=== PATIENT | female | born 1995 | race Caucasian/White ===

== ENCOUNTER → 2018-02-27 | Outpatient (CLI) | payer SELFPAY ==
--- NOTE | 2018-02-27 15:45 | RADIOLOGY REPORT (SQ) ---
EXAM DESCRIPTION: U/S [id number] TRNABD 1GES W/ODOP COMPLETED DATE/TIME: 02/27/2018 3:04 pm REASON FOR STUDY: ENCOUNTER FOR SCREENING OF NORMAL FIRST , FIRST TRIMESTER Z34.01 ENCNTR FOR SUPRVSN OF NORMAL FIRST PREG, FIRST TRIMES COMPARISON: None. TECHNIQUE: Transabdominal static and realtime grayscale images acquired of the pelvis. Additional se lected spectral and color Doppler images recorded. All images stored on PACs. [facility] Not available. CLINICAL DATES: LMP 12/01/2017. 12 weeks 4 days. LIMITATIONS: None. FINDINGS: FETUS: Single Living intrauterine . ULTRASOUND EGA: 12 weeks 2 days. ULTRASOUND ARIK: 09/09/2018. EFW: Not applicable less than 20 weeks. CRL: 5.7 cm. FHR: 150 beats per minute. SURVEY: Too early to assess. AMNIOTIC FLUID: Adequate amount. PLACENTA: Posterior. SUBCHORIONIC BLEED: No SIZE OF BLEED: Not applicable. UTERUS: No masses or anomalies. 12.9 x 8.4 x 7.6 cm. CERVICAL LENGTH: 2.8 cm. Closed. RIGHT ADNEXA: Normal ovary with normal vascular flow. 2.5 x 2.2 x 1.9 cm. No adnexal free fluid. No adnexal masses. LEFT ADNEXA: Ovary not seen. No adnexal free fluid. No adnexal masses. FREE FLUID: None. OTHER: No other significant finding. IMPRESSION: LIVING INTRAUTERINE . EGA 12 weeks 2 days. Trimester of : First - 0 to 13 weeks. TECHNICAL DOCUMENTATION: JOB ID: [id number] [employer]- All Rights Reserved rev Reading location - IP/workstation name: [email or web address]
== END ==
LOC: RAD 14:40
PROVIDERS: ATTEND Nurse Practitioner
DX: Z34.01 Encounter for supervision of normal first pregnancy, first trimester (principal)
CPT/HCPCS: 76801

== ENCOUNTER 2018-07-07 10:48 | Outpatient (CLI) | payer MEDICAID ==
[2018-07-07 11:24] LABS: APPEARANCE,URINE SLIGHTLY-CLOUDY; BILIRUBIN,URINE NEGATIVE (NEGATIVE); COLOR,URINE YELLOW; GLUCOSE, URINE NEGATIVE (NEGATIVE); KETONES,URINE NEGATIVE (NEGATIVE); LEUKOCYTE ESTERASE,URINE NEGATIVE (NEGATIVE); NITRITE,URINE NEGATIVE (NEGATIVE); PROTEIN,URINE 30 mg/dL (NEGATIVE); URINE SPECIFIC GRAVITY 1.016; UROBILINOGEN,URINE NEGATIVE mg/dL (<2.0)
[2018-07-07 11:27] LABS: URINE AMPHETAMINES SCREEN NEGATIVE; URINE BARBITURATES SCREEN NEGATIVE; URINE BENZODIAZEPINES SCREEN NEGATIVE; URINE COCAINE SCREEN NEGATIVE; URINE MARIJUANA (THC) SCREEN NEGATIVE; URINE METHADONE SCREEN NEGATIVE; URINE PHENCYCLIDINE SCREEN NEGATIVE
--- NOTE | 2018-07-07 15:03 | RADIOLOGY REPORT (SQ) ---
EXAM DESCRIPTION: U/S OB LIMITED COMPLETED DATE/TIME: 07/07/2018 2:18 pm REASON FOR STUDY: cervical length, placenta COMPARISON: OB ultrasound 02/27/2018 TECHNIQUE: Limited transvaginal and transabdominal grayscale ultrasound for evaluation of specific r equested obstetrical parameters. LIMITATIONS: None. FINDINGS: CERVICAL LENGTH: 5.7 cm Closed. MAGALY: 11.9 cm. FHR: 130 beats per minute. PRESENTATION: Cephalic. PLACENTA: Posterior grade 1. No gross abruption or previa ANATOMY: Not assessed OTHER: No other significant findings. IMPRESSION: LIMITED OBSTETRICAL ULTRASOUND WITH MEASURED PARAMETERS DELINEATED ABOVE. Trimester of : Third trimester - 28 weeks to delivery. TECHNICAL DOCUMENTATION: JOB ID: [id number] [employer]- All Rights Reserved Reading location - IP/workstation name: [email or web address]
== END 2018-07-07 14:30 | disposition home or self-care (01) ==
LOC: LC 10:48
PROVIDERS: ATTEND Student in an Organized Health Care Education/Training Program
PROC: 4A1HXCZ Monitoring of Products of Conception, Cardiac Rate, External Approach (ICD-10-PCS; principal; 2018-07-07)
DX: O46.93 Antepartum hemorrhage, unspecified, third trimester (principal); Z3A.31 31 weeks gestation of pregnancy
CPT/HCPCS: 76815; 80307; 81001

== ENCOUNTER 2018-08-29 16:04 | Outpatient (CLI) | payer MEDICAID ==
[2018-08-29 16:44] LABS: APPEARANCE,URINE CLOUDY; BILIRUBIN,URINE NEGATIVE (NEGATIVE); COLOR,URINE YELLOW; GLUCOSE, URINE NEGATIVE (NEGATIVE); KETONES,URINE TRACE mg/dL (NEGATIVE); LEUKOCYTE ESTERASE,URINE LARGE (NEGATIVE); NITRITE,URINE NEGATIVE (NEGATIVE); PROTEIN,URINE 100 mg/dL (NEGATIVE); URINE SPECIFIC GRAVITY 1.023
[2018-08-29 16:58] LABS: URINE AMPHETAMINES SCREEN NEGATIVE; URINE BARBITURATES SCREEN NEGATIVE; URINE BENZODIAZEPINES SCREEN NEGATIVE; URINE COCAINE SCREEN NEGATIVE; URINE MARIJUANA (THC) SCREEN NEGATIVE; URINE METHADONE SCREEN NEGATIVE; URINE PHENCYCLIDINE SCREEN NEGATIVE
[2018-08-29 17:00] LABS: UR PRO/CREAT RATIO RESULT 0.4 mg/mg (0.0-0.2); URINE CREATININE 189.8 mg/dL (16-327); URINE PROTEIN 84.4 mg/dL (<12)
[2018-08-29 18:56] LABS: ABSOLUTE EOSINOPHILS # (AUTO) 0.1 10^3/uL (0.0-0.6); ABSOLUTE LYMPHOCYTES (AUTO) 2.3 10^3/uL (0.5-4.7); ABSOLUTE MONOCYTES (AUTO) 0.9 10^3/uL (0.1-1.4); ABSOLUTE NEUT (AUTO) 9.2 10^3/uL (1.7-8.2); BASOPHILS % (AUTO) 0.2 % (0-2); EOSINOPHILS % (AUTO) 0.4 % (0-6); HEMATOCRIT 31.2 % (36.0-47.0); HEMOGLOBIN 10.3 g/dL (12.0-15.5); LYMPHOCYTES % (AUTO) 18.5 % (13-45); MEAN CORPUSCULAR HEMOGLOBIN 26.2 pg (27.0-33.4); MEAN CORPUSCULAR VOLUME 79 fl (80-97); MONOCYTES % (AUTO) 6.8 % (3-13); PLATELET COUNT 275 10^3/uL (150-450); RED BLOOD COUNT 3.94 10^6/uL (3.72-5.28); RED CELL DISTRIBUTION WIDTH 16.1 % (11.5-14.0); SEGMENTED NEUTROPHILS % (AUTO) 74.1 % (42-78); TOTAL CELLS COUNTED % (AUTO) 100 %; WHITE BLOOD COUNT 12.5 10^3/uL (4.0-10.5)
[2018-08-29 19:11] LABS: ALANINE AMINOTRANSFERASE 20 U/L (9-52); ALBUMIN 3.1 g/dL (3.5-5.0); ALKALINE PHOSPHATASE 213 U/L (38-126); ANION GAP 5 (5-19); ASPARTATE AMINO TRANSFERASE 19 U/L (14-36); BILIRUBIN,DIRECT 0.1 mg/dL (0.0-0.4); BILIRUBIN,TOTAL 0.3 mg/dL (0.2-1.3); BLOOD UREA NITROGEN 8 mg/dL (7-20); CARBON DIOXIDE 22 mmol/L (22-30); CHLORIDE 108 mmol/L (98-107); GLUCOSE 71 mg/dL (75-110); POTASSIUM 4.3 mmol/L (3.6-5.0); SODIUM 134.5 mmol/L (137-145); TOTAL PROTEIN 5.8 g/dL (6.3-8.2); URIC ACID 5.6 mg/dL (2.5-6.2)
--- NOTE | 2018-08-29 21:14 | Non Stress Test Report ---
Non Stress Test Datetime Report Generated by CPN: 08/29/2018 21:14 DEMOGRAPHIC Test Number: 1 EGA NST: 38.5 INDICATION Indication for Study: Ordered by Provider; Other Indication for Study (NST) Other: PRE-E W/U VITAL SIGNS Temperature - NST: 98.1 Pulse - NST: 76 RESP - NST: 16 NBPSYS NST: 118 NBPDIA NST: 59 URINE RESULTS Urine Protein, NST: Positive Urine Ketones - NST: Positive Urine Glucose - NST: Negative Urine Blood - NST: Negative MONITORING Monitor Explained: Monitor Explained; Test Explained; Patient Verbalized Understanding Time on Monitor: 08/29/2018 16:30 Time off Monitor: 08/29/2018 20:18 NST Duration: 228 NST INTERVENTIONS NST Interventions: PO Hydration; Reposition Patient Physician Notified NST: Dr. Valencia BABY A: [id number] BABY A Movement : Present (Annotations: Data stored by [facility] on behalf of user) Contraction Frequency : IRREG FHR Baseline : 125 Accelerations : 15X15 Decelerations : None Variability : Moderate 6-25bpm NST Review: Meets Criteria for Reactive NST NST Review and Verified By : BENITO Bauer Results: Reactive NST REPORT Report Trigger: Send Report
== END 2018-08-29 20:47 | disposition home or self-care (01) ==
LOC: LC 16:04
PROVIDERS: ATTEND Obstetrics & Gynecology
PROC: 4A1HXCZ Monitoring of Products of Conception, Cardiac Rate, External Approach (ICD-10-PCS; principal; 2018-08-29)
DX: O47.1 False labor at or after 37 completed weeks of gestation (principal); Z3A.38 38 weeks gestation of pregnancy
CPT/HCPCS: 36415; 59025; 80053; 80307; 81001; 82570; 84156; 84550; 85025

== ENCOUNTER 2018-08-31 13:48 | Inpatient (IN) | payer MEDICAID ==
[2018-08-31 15:19] LABS: URINE PROTEIN 48.9 mg/dL (<12)
[2018-08-31 15:21] LABS: 24 HOUR URINE PROTEIN RESULT 1301 mg/day (42-225); 24 HR URINE CREAT RESULT 1.6 mg/day (0.8-2.0)
[2018-08-31] MEDS ORDERED: DINOPROSTONE 10 MG VAGINAL INSERT.SR PV PRN (15:39)
[2018-08-31] MEDS ORDERED: RINGERS SOLUTION,LACTATED 300 ML IV ONE (15:39)
[2018-08-31] MEDS ORDERED: OXYTOCIN/NORMAL SALINE 20 UNIT/1,000 ML RTUINJ IV PRN (15:39)
[2018-08-31] MEDS ORDERED: PENICILLIN G POTASSIUM 5,000,000 UNIT in DEXTROSE 5%-WATER 100 ML IV ONE (15:39)
--- NOTE | 2018-08-31 15:52 | Admission Physical ---
Datetime Report Generated by CPN: 08/31/2018 15:52 CURRENT ADMISSION Chief Complaint: Sent from OB Office for Evaluation and Treatment - Please Specify Chief Complaint Other: repeat NST, turn in 24 hour urine Indication for Induction: PreEclampsia Admit Impression : Term, Intrauterine Admit Plan: Admit to Unit; Initiate Labor Induction Protocol ALLERGIES Medication Allergies: Yes Medication Allergies: Sulfa (Sulfonamide Antibiotics) (08/30/2018) Latex: No Latex Allergies Food Allergies: No known allergies Environmental Allergies: No known allergies OBSTETRICAL HISTORY EDC: 09/07/2018 00:00 : 1 Para: 0 Current Procedures: Ultrasound; NST Obstetrical History Comments: G1: current, poly SEE RECORDS Alcohol: No Marijuana : No Cocaine: No Other Illicit Drugs: No Cigarettes: Former Smoker. [id number] PHYSICAL EXAM General: Normal HEENT: Normal Neurologic: Normal Thyroid: Deferred Heart: Normal Lungs: Normal Breast: Deferred Back: Normal Abdomen: Normal Genitourinary Exam: Normal Extremities: Normal DTRs: Normal Pelvic Type: Adequate Vital Signs: Reviewed Details Vital Signs: mild range elvated BP VAGINAL EXAM Contraction Comments: irreg MEMBRANES Membranes: Intact FETUS A EGA: 39.0 Monitoring: External US FHR- Baseline: 135 Decelerations: None Estimated Weight (gm): 3300 Presentation: Vertex Admit Comment: at 39w, sent from office for repeat NST, turning in 24 hour urine [id number]. c/w dr morales. decision to admit for IOL. pt agrees with plan. GBS pos. P: cervidil tonight and pitocin in AM, anticipate PLANS FOR LABOR AND DELIVERY Labor and Delivery: None Pain Management: Epidural Feeding Preference: Breast Benefit of Breast Feed Discussed: Yes Circumcision: Yes INFORMED CONSENT Assignment: Coby Morales MD Signature: with User ID: [email or web address] : with User ID: [email or web address]
[2018-08-31 16:18] LABS: ABSOLUTE BASOPHILS # (AUTO) 0.1 10^3/uL (0.0-0.2); ABSOLUTE EOSINOPHILS # (AUTO) 0.1 10^3/uL (0.0-0.6); ABSOLUTE LYMPHOCYTES (AUTO) 2.2 10^3/uL (0.5-4.7); ABSOLUTE MONOCYTES (AUTO) 0.9 10^3/uL (0.1-1.4); BASOPHILS % (AUTO) 0.5 % (0-2); EOSINOPHILS % (AUTO) 0.5 % (0-6); HEMATOCRIT 30.1 % (36.0-47.0); HEMOGLOBIN 10.2 g/dL (12.0-15.5); LYMPHOCYTES % (AUTO) 19.5 % (13-45); MEAN CORPUSCULAR HEMOGLOBIN 26.7 pg (27.0-33.4); MEAN CORPUSCULAR HGB CONC 33.7 g/dL (32.0-36.0); MEAN CORPUSCULAR VOLUME 79 fl (80-97); MONOCYTES % (AUTO) 7.7 % (3-13); PLATELET COUNT 282 10^3/uL (150-450); RED BLOOD COUNT 3.81 10^6/uL (3.72-5.28); RED CELL DISTRIBUTION WIDTH 16.7 % (11.5-14.0); SEGMENTED NEUTROPHILS % (AUTO) 71.8 % (42-78); TOTAL CELLS COUNTED % (AUTO) 100 %; WHITE BLOOD COUNT 11.2 10^3/uL (4.0-10.5)
[2018-08-31] MEDS ORDERED: DINOPROSTONE 10 MG VAGINAL INSERT.SR ONE (16:22)
[2018-08-31] MEDS ORDERED: PENICILLIN G-K 5 MILLION UNIT VIAL ONE ×2 (16:34→23:51)
[2018-08-31] MEDS: RINGERS SOLUTION,LACTATED 1,000 ML IV PRN (16:48)
[2018-08-31 17:06] LABS: URINE AMPHETAMINES SCREEN NEGATIVE; URINE BARBITURATES SCREEN NEGATIVE; URINE BENZODIAZEPINES SCREEN NEGATIVE; URINE COCAINE SCREEN NEGATIVE; URINE MARIJUANA (THC) SCREEN NEGATIVE; URINE METHADONE SCREEN NEGATIVE; URINE PHENCYCLIDINE SCREEN NEGATIVE
[2018-08-31] MEDS ORDERED: ZOLPIDEM TARTRATE 5 MG TABLET PO ONE (21:48)
[2018-08-31] MEDS ORDERED: ZOLPIDEM TARTRATE 5 MG TABLET ONE (21:50)
[2018-09-01] MEDS: PENICILLIN G POTASSIUM 2,500,000 UNIT in DEXTROSE 5%-WATER 50 ML IV SCH ×4 (00:02→12:02)
[2018-09-01] MEDS: RINGERS SOLUTION,LACTATED 1,000 ML IV PRN ×4 (00:21→10:47)
[2018-09-01] MEDS ORDERED: MISOPROSTOL 0.2 MG TABLET ONE (00:33)
[2018-09-01] MEDS ORDERED: OXYTOCIN 10 UNIT/ML VIAL ONE (00:33)
[2018-09-01] MEDS ORDERED: BUPIVACAINE HCL 0.25 % INJ/PF (2.5 MG/1 ML) 30 ML VIAL ONE (00:34)
[2018-09-01] MEDS ORDERED: OXYTOCIN/NORMAL SALINE 20 UNIT/1,000 ML RTUINJ ONE (00:34)
[2018-09-01] MEDS ORDERED: EPHEDRINE SULFATE INJ 50 MG/1 ML AMPULE ONE (00:34)
[2018-09-01] MEDS ORDERED: LIDOCAINE 1% INJ-PF (10 MG/ML) 30 ML SDV ONE (00:34)
[2018-09-01] MEDS ORDERED: FENTANYL/BUPIVACAINE/NS/PF 300 MCG/150 ML RTUINJ EPI ONE ×2 (00:34→13:13)
[2018-09-01] MEDS ORDERED: FENTANYL CITRATE INJ/PF 100 MCG/2 ML AMPUL ONE (00:34)
[2018-09-01] MEDS ORDERED: OXYTOCIN/NORMAL SALINE 20 UNIT/1,000 ML RTUINJ IV PRN ×2 (03:19→17:51)
[2018-09-01] MEDS ORDERED: MAG HYDROX/AL HYDROX/SIMETH SUSP 30 ML UDCUP ONE ×2 (04:01→13:14)
[2018-09-01] MEDS ORDERED: PENICILLIN G-K 5 MILLION UNIT VIAL ONE ×3 (04:01→11:49)
--- NOTE | 2018-09-01 17:02 | Warning Signs in Babies ---
VOD Warning Signs Datetime Report Generated by [facility]: 09/01/2018 17:01 VOD#[id number] -Warning Signs in Babies: Viewed with Parent(s)/Family (09/01/2018 15:52:Floridalma Turcios RN)
--- NOTE | 2018-09-01 17:15 | Warning Signs in Babies ---
VOD Warning Signs Datetime Report Generated by [facility]: 09/01/2018 17:15 VOD#608 -Warning Signs in Babies: Viewed with Parent(s)/Family (09/01/2018 16:17:Floridalma Turcios RN)
--- NOTE | 2018-09-01 17:39 | Delivery Summary ---
Del Sum A-C Datetime Report Generated by CPN: 09/01/2018 17:39 DELIVERY PERSONNEL DELIVERY PERSONNEL: [id number] Delivery Doctor:: Hollie Robert MD Labor and Delivery Nurse:: JORGE Cortes Labor and Delivery Nurse:: Floridalma Turcios RN Nursery Nurse:: Gloria Orellana RN Implementation Project Coordinator/MOBILE DEVELOPER: Vidya Chaudharya, ST MATERNAL INFORMATION Delivery Anesthesia: Epidural Medications After Delivery: Pitocin Bolus-Please Comment Estimated Blood Loss (ml): 150 Maternal Complications: None LABOR SUMMARY EDC: 09/07/2018 00:00 No. Babies in Womb: 1 Attempted: No Labor Anesthesia: Epidural LABOR INFORMATION Reason for Induction: Pre-Eclampsia Onset of Labor: 09/01/2018 03:00 Complete Dilatation: 09/01/2018 14:16 Cervical Ripening Agents: Cervidil Oxytocin: Augmentation Group B Beta Strep: Positive Antibiotics # of Doses: 4 Antibiotics Time of Last Dose: 1203 Name of Antibiotic Given: PCN Steroids Given: None Reason Steroids Not Administered: Not Applicable MEMBRANES Membranes Rupture Method: Spontaneous Rupture of Membranes: 08/31/2018 23:30 Length of Rupture (hr): 16.27 Amniotic Fluid Color: Clear Amniotic Fluid Amount: Small Amniotic Fluid Odor: Normal STAGES OF LABOR Stage 1 hr: 11 Stage 1 min: 16 Stage 2 hr: 1 Stage 2 min: 30 Stage 3 hr: 0 Stage 3 min: 9 Total Time in Labor hr: 12 Total Time in Labor min: 55 VAGINAL DELIVERY Episiotomy: None Laceration #1: Vaginal; Periurethral Laceration Extension #1: First Degree Laceration #2: Periurethral Laceration Extension #2: First Degree Laceration Repair: Yes Laceration Repair Note: 1st degree tear, proximal to the introitus, reapproximated with a 2-0 Vicryl in a figure of eight. A single left lynn-urethral tear noted, repaired in a single 3-0 vicryl suture. Sponge Count Correct: Yes Sharps Count Correct: Yes CSECTION DELIVERY Primary Indication: N/A Secondary Indication: N/A CSection Incidence: N/A Labor: N/A Elective: N/A CSection Incision: N/A BABY A INFORMATION Infant Delivery Date/Time: 09/01/2018 15:46 Method of Delivery: Vaginal Born in Route : No : N/A Forceps: N/A Vacuum Extraction: N/A Shoulder Dystocia : No PRESENTATION/POSITION BABY A Presentation: Cephalic Cephalic Presentation: Vertex Vertex Position: Left Occipital Anterior Breech Presentation: N/A PLACENTA INFORMATION BABY A Placenta Delivery Time : 09/01/2018 15:55 Placenta Method of Delivery: Spontaneous Placenta Status: Delivered SCORES BABY A Heart Rate 1 min: >100 bpm Resp Effort 1 min: Absent Reflex Irritability 1 min: No Response Muscle Tone 1 min: Some Flexion of Extremities Color 1 min: Body [place], Extremities Blue Resuscitation Effort 1 min: Tactile Stimulation; Oxygen; PPV/NCPAP SCORE 1 MIN: 4 Heart Rate 5 min: >100 bpm Resp Effort 5 min: Good Cry Reflex Irritability 5 min: Grimace Muscle Tone 5 min: Some Flexion of Extremities Color 5 min: Body [place], Extremities Blue Resuscitation Effort 5 min: Tactile Stimulation SCORE 5 MIN: 7 Heart Rate 10 min: >100 bpm Resp Effort 10 min: Good Cry Reflex Irritability 10 min: Grimace Muscle Tone 10 min: Some Flexion of Extremities Color 10 min: Body [place], Extremities Blue SCORE 10 MIN: 7 INFORMATION BABY A Gestational Age at Delivery: 39.1 Gestational Status: Full Term- 39- 40.6 Weeks Outcome : Liveborn Condition : Stable Infant Sex: Male IDENTIFICATION BABY A Verification Date/Time: 09/01/2018 15:54 ID Band Number: [id number] Mother's Name Verified: Yes RN Verifying : Licha [place] [facility] Additional Verifying Personnel: Vidya Davis SKIN CARE THERAPIST WEIGHT/LENGTH BABY A Birthweight (gm): 3387 Weight (lb): 7 Weight (oz): 7 Length (in): 20.50 Infant Length (cm): 52.07 CORD INFORMATION BABY A No. Cord Vessels: 3 Nuchal Cord : N/A Cord Blood Taken: Yes-For Eval (Mom's Blood Type - or O+) Suction: Mouth; Nose ASSESSMENT BABY A Infant Complications: Extended Bradycardia; Multiple Variable Decels; Other Physical Findings at Delivery: Caput Succedaneum; Molding of the Head; Bruising Respirations: Grunting; Tachypnea Skin to Skin: Yes Skin to Skin Time (min): 60 Environmental Services Manager/ALS Called : No Infant Care By: H Esteban RN Transferred To: Remains with Mother BABY B INFORMATION : N/A SIGNATURES : I was personally available for consultation and serving as supervising physician for the MLP.
[2018-09-01] MEDS ORDERED: BENZOCAINE/MENTHOL AEROSOL SPRAY 56 ML TOP PRN (17:51)
[2018-09-01] MEDS ORDERED: DIPH/PERTUSS(ACELL)/TETANUS VAC/PF 0.5 ML SYR (>=10YO) IM PRN (17:51)
[2018-09-01] MEDS ORDERED: MEASLES,MUMPS&RUBELLA VACC/PF 0.5 ML VIAL SUBCUT PRN (17:51)
[2018-09-01] MEDS ORDERED: DIBUCAINE 1% OINTMENT 56 GM TP PRN (17:51)
[2018-09-01] MEDS ORDERED: ACETAMINOPHEN WITH CODEINE #3 TABLET PO PRN ×2 (17:51)
[2018-09-01] MEDS ORDERED: ZOLPIDEM TARTRATE 5 MG TABLET PO PRN (17:51)
[2018-09-01] MEDS: DOCUSATE SODIUM 100 MG CAPSULE PO SCH (18:20)
[2018-09-01] MEDS: FERROUS SULFATE 325 MG TABLET PO SCH (18:20)
[2018-09-01] MEDS: IBUPROFEN 800 MG TABLET PO SCH (22:44)
[2018-09-02] MEDS: IBUPROFEN 800 MG TABLET PO SCH ×3 (05:46→21:29)
[2018-09-02 08:31] LABS: HEMATOCRIT 24.8 % (36.0-47.0); HEMOGLOBIN 8.2 g/dL (12.0-15.5); MEAN CORPUSCULAR HEMOGLOBIN 26.5 pg (27.0-33.4); MEAN CORPUSCULAR VOLUME 80 fl (80-97); PLATELET COUNT 232 10^3/uL (150-450); RED BLOOD COUNT 3.09 10^6/uL (3.72-5.28); RED CELL DISTRIBUTION WIDTH 17.2 % (11.5-14.0)
--- NOTE | 2018-09-02 09:17 | PDOC PROGRESS REPORT ---
Subjective-OB Progress Note for:: 09/02/18 Subjective: reports bleeding slowing, pain controlled with current meds, denies needs Physical Exam (OB) Vital Signs: Temp Pulse Resp BP Pulse Ox 99.5 F 89 18 129/70 H 99 09/01/18 19:53 09/01/18 19:53 09/01/18 19:53 09/01/18 19:53 09/01/18 19:53 Intake & Output 09/01/18 09/02/18 09/03/18 06:59 06:59 06:59 Intake Total 1431 967 Output Total 500 Balance 1431 467 Weight 92.2 kg - Abdomen Description: Soft, Round Hernia Present: No Fundal Description: Firm, Midline Fundal Height: u/u - u/2 - Abdominal Distension: No distension Tenderness: Nontender - Extremities Lower extremities: Tali's sign - neg Calf: Normal, Nontender Objective-Diagnostic Laboratory: 09/02/18 07:49 09/02/18 07:49 WBC 16.0 H RBC 3.09 L Hgb 8.2 L Hct 24.8 L MCV 80 MCH 26.5 L MCHC 33.0 RDW 17.2 H Plt Count 232 Assessment and Plan(PN) - Assessment and Plan (1) Encounter for induction of labor Is this a current diagnosis for this admission?: Yes (2) Normal vaginal delivery Is this a current diagnosis for this admission?: Yes (3) Obstetrical laceration Is this a current diagnosis for this admission?: Yes (4) Pre-eclampsia Is this a current diagnosis for this admission?: Yes - Time Spent with Patient Time with patient: Less than 15 minutes Medications reviewed and adjusted accordingly: Yes - Disposition Anticipated Discharge: Home Within: within 24 hours
[2018-09-02] MEDS: DOCUSATE SODIUM 100 MG CAPSULE PO SCH ×2 (09:26→17:41)
[2018-09-02] MEDS: SENNOSIDES/DOCUSATE 8.6-50 MG 1 EACH TABLET PO SCH (09:27)
[2018-09-02] MEDS: PRENATAL VITAMIN W DHA CAPSULE PO SCH (09:27)
[2018-09-02] MEDS: FERROUS SULFATE 325 MG TABLET PO SCH ×2 (09:27→17:41)
[2018-09-03] MEDS: IBUPROFEN 800 MG TABLET PO SCH ×2 (05:53→14:50)
--- NOTE | 2018-09-03 08:49 | PDOC DISCHARGE SUMMARY ---
Addendum entered and electronically signed by YOSELIN BORJA CNM 09/03/18 09:06: Assessment and Plan(PN) - Assessment and Plan (1) Encounter for induction of labor Is this a current diagnosis for this admission?: Yes (2) Normal vaginal delivery Is this a current diagnosis for this admission?: Yes (3) Obstetrical laceration Is this a current diagnosis for this admission?: Yes (4) Pre-eclampsia Is this a current diagnosis for this admission?: Yes - Time Spent with Patient Medications reviewed and adjusted accordingly: Yes - Disposition Anticipated Discharge: Home Physical Exam (OB) Vital Signs: Temp Pulse Resp BP Pulse Ox 97.8 F 84 16 142/74 H 98 09/03/18 07:56 09/03/18 07:56 09/03/18 07:56 09/03/18 07:49 09/03/18 07:56 Intake & Output 09/02/18 09/03/18 09/04/18 06:59 06:59 06:59 Intake Total 967 3000 Output Total 500 Balance 467 3000 - PIH/Pre-Eclampsia DTR's: 2 + Clonus: Negative Headache: Absent Epigastric Pain: No Visual Changes: No - Lochia Lochia Amount: Scant < 10 ml Lochia Color: Rubra/Red - Abdomen Description: Soft, Round Hernia Present: No Fundal Description: Firm Fundal Height: u/u - u/2 Original Note: Final Diagnosis Discharge Date: 09/03/18 - PP Day #2, O+, Rubella Immune, IOL for Pre-eclampsia. Doing well today, no complaints. - Final Diagnosis (1) Encounter for induction of labor Is this a current diagnosis for this admission?: Yes (2) Normal vaginal delivery Is this a current diagnosis for this admission?: Yes (3) Obstetrical laceration Is this a current diagnosis for this admission?: Yes (4) Pre-eclampsia Is this a current diagnosis for this admission?: Yes Discharge Data - Discharge Medication Prescriptions: Ferrous Sulfate [Feosol 325 mg Tablet] 325 mg PO BID #30 tablet Ibuprofen [Motrin 800 mg Tablet] 800 mg PO Q8 #60 tablet Home Medications: Pnv,Calcium 72/Iron/Folic Acid [ Plus Tablet] 1 tab PO DAILY 08/29/18 Ferrous Sulfate [Feosol 325 mg Tablet] 325 mg PO BID #30 tablet 09/03/18 Ibuprofen [Motrin 800 mg Tablet] 800 mg PO Q8 #60 tablet 09/03/18 Reason(s) for Admission: Induction of Labor Admission Note: IOL for Pre-eclampsia Procedures: NST, Ultrasound Intrapartum Procedure(s): Spontaneous Vaginal Delivery Complication(s): Laceration-Vaginal Laceration-Degree: 1st - Diagnosis Test Laboratory: Temp Pulse Resp BP Pulse Ox 97.8 F 84 16 133/73 H 98 09/03/18 07:56 09/03/18 07:56 09/03/18 07:56 09/03/18 03:48 09/03/18 07:56 08/31/18 08/31/18 09/02/18 16:07 16:23 07:49 RBC 3.81 3.09 L Hgb 10.2 L 8.2 L Hct 30.1 L 24.8 L Urine Opiates Screen NEGATIVE - Discharge information/Instructions Discharge Activity: Activity As Tolerated, No Lifting Over 10 Pounds, Pelvic Rest Discharge Diet: As Tolerated, Regular Disposition: HOME, SELF-CARE Follow up with: [facility] in: 1 - for BP check
[2018-09-03 09:04] VITALS: BP 142/74
[2018-09-03] MEDS: DOCUSATE SODIUM 100 MG CAPSULE PO SCH ×2 (10:16→17:51)
[2018-09-03] MEDS: SENNOSIDES/DOCUSATE 8.6-50 MG 1 EACH TABLET PO SCH (10:16)
[2018-09-03] MEDS: PRENATAL VITAMIN W DHA CAPSULE PO SCH (10:16)
[2018-09-03] MEDS: FERROUS SULFATE 325 MG TABLET PO SCH ×2 (10:16→17:51)
== END 2018-09-03 19:15 | disposition home or self-care (01) | DRG 807 ==
LOC: LC 13:48 → LR 15:36 → 2S 09-01 08:40 → LR 09-01 08:44 → 2S 09-01 17:58
PROVIDERS: ADMIT Obstetrics & Gynecology; ATTEND Obstetrics & Gynecology
PROC: 10E0XZZ Delivery of Products of Conception, External Approach (ICD-10-PCS; principal; 2018-09-01)
PROC: 0UQMXZZ Repair Vulva, External Approach (ICD-10-PCS; 2018-09-01)
PROC: 0HQ9XZZ Repair Perineum Skin, External Approach (ICD-10-PCS; 2018-09-01)
DX: O14.94 Unspecified pre-eclampsia, complicating childbirth (principal); O76 Abnormality in fetal heart rate and rhythm complicating labor and delivery; O99.824 Streptococcus B carrier state complicating childbirth; O71.82 Other specified trauma to perineum and vulva; O70.0 First degree perineal laceration during delivery; Z3A.39 39 weeks gestation of pregnancy; Z37.0 Single live birth
CPT/HCPCS: 36415; 80307; 82570; 84156; 85025; 85027; 86592; 86850; 86900; 86901; 94760; J2540; J2590; J3010; J3490

== ENCOUNTER 2018-09-04 20:39 | Emergency (ER) | payer MEDICAID ==
[2018-09-05] MEDS ORDERED: DIPHENHYDRAMINE HCL 50 MG CAPSULE PO ONE (00:28)
[2018-09-05] MEDS ORDERED: DEXAMETHASONE SOD PHOS INJ 10 MG/1 ML VIAL IM ONE (00:28)
--- NOTE | 2018-09-05 00:33 | ER Document Report ---
Addendum entered and electronically signed by AMBER NETTLES PA-C 09/05/18 01:21: Discharge - Discharge Clinical Impression: rash Allergic reaction Qualifiers: Encounter type: initial encounter Qualified Code(s): T78.40XA - Allergy, unspecified, initial encounter Urinary tract infection Qualifiers: Urinary tract infection type: site unspecified Hematuria presence: with hematuria Qualified Code(s): N39.0 - Urinary tract infection, site not specified Condition: Good Disposition: HOME, SELF-CARE Instructions: Cephalexin ([facility]), Rash of ([facility]), Urinary Tract Infection ([facility]) Additional Instructions: Home and rest. Since she is informed that you are not breast-feeding anymore any choice of medications is okay. However still using medications that can be relatively safe if you attempt to breast-feed again. Benadryl is safe in breast-feeding and will help with her itch. I am also placing you on an antibiotic that appears you have a urinary tract infection. I would consult your TR[facility] tomorrow because this also can be obscured since she did give vaginal but with your symptomatology of burning with urination felt it necessary to go ahead and start treating. Also placing you on one Diflucan pill this. You from getting a yeast infection while on antibiotics. Contact your TRIP RIDER tomorrow for further involvement and for further follow-up and care. Return to ER if you have any concerns or problems. For the itch she can continue with Benadryl 25-50 mg every 6 hours as needed for the itch. Actually your antibiotic should be 500 mg 1 tablet twice a day. Is not 4 times a day. I am going to rewrite she would an additional 1 but originally order set 4 times a day. Prescriptions: Cephalexin Monohydrate [Keflex 500 mg Capsule] 500 mg PO Q6H 5 Days #20 capsule Cephalexin Monohydrate [Keflex 500 mg Capsule] 500 mg PO BID 5 Days #10 capsule Fluconazole [Diflucan] 150 mg PO ONCE PRN #1 tablet PRN Reason: Forms: Elevated Blood Pressure Referrals: MERVIN GONZALEZ MD [Primary Care Provider] - Follow up as needed Addendum entered and electronically signed by AMBER NETTLES PA-C 09/05/18 01:16: Discharge - Discharge Clinical Impression: rash Allergic reaction Qualifiers: Encounter type: initial encounter Qualified Code(s): T78.40XA - Allergy, unspecified, initial encounter Urinary tract infection Qualifiers: Urinary tract infection type: site unspecified Hematuria presence: with hematuria Qualified Code(s): N39.0 - Urinary tract infection, site not specified Condition: Good Disposition: HOME, SELF-CARE Instructions: Cephalexin ([facility]), Rash of ([facility]), Urinary Tract Infection ([facility]) Additional Instructions: Home and rest. Since she is informed that you are not breast-feeding anymore any choice of medications is okay. However still using medications that can be relatively safe if you attempt to breast-feed again. Benadryl is safe in breast-feeding and will help with her itch. I am also placing you on an antibiotic that appears you have a urinary tract infection. I would consult your TRIP RIDER tomorrow because this also can be obscured since she did give vaginal but with your symptomatology of burning with urination felt it necessary to go ahead and start treating. Also placing you on one Diflucan pill this. You from getting a yeast infection while on antibiotics. Contact your TRIP RIDER tomorrow for further involvement and for further follow-up and care. Return to ER if you have any concerns or problems. For the itch she can continue with Benadryl 25-50 mg every 6 hours as needed for the itch. Prescriptions: Cephalexin Monohydrate [Keflex 500 mg Capsule] 500 mg PO Q6H 5 Days #20 capsule Fluconazole [Diflucan] 150 mg PO ONCE PRN #1 tablet PRN Reason: Forms: Elevated Blood Pressure Referrals: MERVIN GONZALEZ MD [Primary Care Provider] - Follow up as needed Original Note: ED General - General Chief Complaint: Fever Stated Complaint: FEVER Time Seen by Provider: 09/05/18 00:16 Primary Care Provider: MERVIN GONZALEZ MD [Primary Care Provider] - Follow up as needed Mode of Arrival: Ambulatory Information source: Patient Notes: Patient is a 22-year-old female comes emergency room complaining of a rash on her belly. Patient also states that she is by 2 days. She did give vaginal 2 days ago and states that she did ripped during the vaginal delivery and she has stitches put in. She started with a rash this morning only ascends on her abdominal area and only up to epigastric area and only encompasses from the mid axilla to mid axilla area. Patient states is very pruritic she denies any types of creams or lotions no changes in clothing no associated irritant that she can think of. She does state that she has a little bit of discomfort with urination. Patient also relates that she has attempted to breast-feed but she is not going to it is too painful pumping is extremely painful so she is weaning off. She also states that the child is not clamping down and not taking any nutrients from the nipple itself. Therefore patient is gone to bottle feeding. TRAVEL OUTSIDE OF THE [place] IN LAST 30 DAYS: No - HPI Onset/Duration: Gradual, Persistent Severity: Moderate Pain Level: 3 Associated symptoms: None Exacerbated by: Denies Relieved by: Denies Similar symptoms previously: No Recently seen / treated by doctor: No - Related Data Allergies/Adverse Reactions: Sulfa (Sulfonamide Antibiotics) Allergy (Verified 08/30/18 17:00) Past Medical History - General Information source: Patient - Social History Smoking Status: Never Smoker Cigarette use (# per day): No Chew tobacco use (# tins/day): No Smoking Education Provided: No Frequency of alcohol use: None Drug Abuse: None Lives with: Family, Spouse/Significant other Family History: Reviewed & Not Pertinent Review of Systems - Review of Systems Constitutional: No symptoms reported EENT: No symptoms reported Cardiovascular: No symptoms reported Respiratory: No symptoms reported Gastrointestinal: No symptoms reported Genitourinary: No symptoms reported Female Genitourinary: No symptoms reported Musculoskeletal: No symptoms reported Skin: See HPI, Rash Hematologic/Lymphatic: No symptoms reported Neurological/Psychological: No symptoms reported -: Yes All other systems reviewed and negative Physical Exam - Vital signs Vitals: Temp Pulse Resp BP Pulse Ox 98.4 F 70 18 155/97 H 96 09/04/18 21:06 09/04/18 21:06 09/04/18 21:06 09/04/18 21:06 09/04/18 21:06 Interpretation: Hypertensive - Notes Notes: PHYSICAL EXAMINATION: GENERAL: Well-appearing, well-nourished and in no acute distress. HEAD: Atraumatic, normocephalic. EYES: Pupils equal round and reactive to light, extraocular movements intact, conjunctiva are normal. ENT: Nares patent, oropharynx clear without exudates. Moist mucous membranes. NECK: Normal range of motion, supple without lymphadenopathy LUNGS: Breath sounds clear to auscultation bilaterally and equal. No wheezes rales or rhonchi. HEART: Regular rate and rhythm without murmurs ABDOMEN: Examination patient's area of concern is for abdominal area extending from just below the midepigastric area to the below the umbilicus and at the waist and around mid axillary to mid axillary lines. It is a macular presentation urticaria rather presentation which is faint in color there are no excoriations noted at the time although patient states that it is pruritic. And again it ends at mid axillary lines on the abdominal area and just below the epigastric area. Female : deferred Musculoskeletal: Normal range of motion, no pitting or edema. No cyanosis. NEUROLOGICAL: Normal speech, normal gait. Normal sensory, motor exams PSYCH: Normal mood, normal affect. SKIN: See abdominal exam above for full description of the urticarial type p resentation. Course - Re-evaluation Re-evalutation: 09/05/18 00:36 Patient probably presents with a rash of . However cannot rule out any type of an allergic reaction at this point in time either so we are treating with some steroid shot tonight and Benadryl. She will see her [facility]NAGER [facility] tomorrow. Patient is not breast-feeding and will not continue to breast-feed therefore medication uptake are safe during breast-feeding however I do not like to use medications if patients are breast-feeding. Patient's urine came back with large amount of blood and moderate amount of esterase. Chances are this may still be related to vaginal given above 2 days ago however given her presentation and her burning with urination we will go ahead and treat at this time. She is also not breast-feeding as stated of above in the rest of the history and physical so I am going to place her on some cephalexin. The still believe the rash is that of and she can continue with Benadryl for the itch. 09/05/18 01:09 - Vital Signs Vital signs: Temp Pulse Resp BP Pulse Ox 98.4 F 70 18 155/97 H 96 09/04/18 21:06 09/04/18 21:06 09/04/18 21:06 09/04/18 21:06 09/04/18 21:06 - Laboratory Laboratory results interpreted by me: 09/05/18 00:23 Urine Protein 100 H Urine Ketones TRACE H Urine Blood LARGE H Ur Leukocyte Esterase MODERATE H Discharge - Discharge Clinical Impression: rash Allergic reaction Qualifiers: Encounter type: initial encounter Qualified Code(s): T78.40XA - Allergy, unspecified, initial encounter Urinary tract infection Qualifiers: Urinary tract infection type: site unspecified Hematuria presence: with hematuria Qualified Code(s): N39.0 - Urinary tract infection, site not specified; R31.9 - Hematuria, unspecified Condition: Good Disposition: HOME, SELF-CARE Instructions: Cephalexin ([facility]), Urinary Tract Infection ([facility]), Rash of ([facility]) Additional Instructions: Home and rest. Since she is informed that you are not breast-feeding anymore any choice of medications is okay. However still using medications that can be relatively safe if you attempt to breast-feed again. Benadryl is safe in breast-feeding and will help with her itch. I am also placing you on an antibiotic that appears you have a urinary tract infection. I would consult your TRIP RIDER tomorrow because this also can be obscured since she did give vaginal but with your symptomatology of burning with urination felt it necessary to go ahead and start treating. Also placing you on one Diflucan pill this. You from getting a yeast infection while on antibiotics. Contact your TRIP RIDER tomorrow for further involvement and for further follow-up and care. Return to ER if you have any concerns or problems. For the itch she can continue with Benadryl 25-50 mg every 6 hours as needed for the itch. Prescriptions: Cephalexin Monohydrate [Keflex 500 mg Capsule] 500 mg PO Q6H 5 Days #20 capsule Fluconazole [Diflucan] 150 mg PO ONCE PRN #1 tablet PRN Reason: Forms: Elevated Blood Pressure Referrals: MERVIN GONZALEZ MD [Primary Care Provider] - Follow up as needed
[2018-09-05 00:52] LABS: APPEARANCE,URINE CLOUDY; BILIRUBIN,URINE NEGATIVE (NEGATIVE); COLOR,URINE RED; GLUCOSE, URINE NEGATIVE (NEGATIVE); KETONES,URINE TRACE mg/dL (NEGATIVE); LEUKOCYTE ESTERASE,URINE MODERATE (NEGATIVE); NITRITE,URINE NEGATIVE (NEGATIVE); PROTEIN,URINE 100 mg/dL (NEGATIVE); UROBILINOGEN,URINE NEGATIVE mg/dL (<2.0)
[2018-09-05] MEDS ORDERED: CEPHALEXIN 500 MG CAPSULE PO ONE (01:18)
[2018-09-05 01:30] VITALS: BP 146/96
== END 2018-09-05 01:30 | disposition home or self-care (01) ==
LOC: ER 20:39
DX: O99.73 Diseases of the skin and subcutaneous tissue complicating the puerperium (principal); L50.9 Urticaria, unspecified; O86.20 Urinary tract infection following delivery, unspecified; R31.9 Hematuria, unspecified; T78.40XA Allergy, unspecified, initial encounter; X58.XXXA Exposure to other specified factors, initial encounter; Z98.890 Other specified postprocedural states; Z88.2 Allergy status to sulfonamides
CPT/HCPCS: 99283; 96372; 81001; J3490; J1100

== ENCOUNTER → 2019-11-29 | Outpatient (CLI) | payer MEDICAID ==
--- NOTE | 2019-11-29 11:07 | RADIOLOGY REPORT (SQ) ---
EXAM DESCRIPTION: U/S ABDOMEN LIMITED W/O DOP IMAGES COMPLETED DATE/TIME: 11/29/2019 7:44 am REASON FOR STUDY: EPIGASTRIC PAIN (R10.13), FUNCTIONAL DYSPEPSIA (K30), GERD (K21.9), N/V (R1 R10.13 EPIGASTRIC PAIN K30 FUNCTIONAL DYSPEPSIA K21.9 GASTRO-ESOPHAGEAL REFLUX DISEASE WITHOUT ESOPHAGIT IS COMPARISON: None. TECHNIQUE: Dynamic and static grayscale images acquired of the abdomen and recorded on PACS. Additio nal selected color Doppler and spectral images recorded. LIMITATIONS: None. FINDINGS: PANCREAS: The pancreatic body and tail are obscured by overlying bowel. LIVER: Normal contour and echotexture of the liver. LIVER VASCULATURE: Hepatopetal directional flow in the portal veins. GALLBLADDER: The gallbladder wall measures 1.6 mm in thickness. The gallbladder is filled with calcu li that result in a wall echo shadow sign. There is no pericholecystic fluid. ULTRASOUND-DETECTED BARTHOLOMEW'S SIGN: Negative. INTRAHEPATIC DUCTS AND COMMON DUCT: The common bile duct measures 3.5 mm in diameter. INFERIOR VENA CAVA: Not assessed. AORTA: The abdominal aorta is obscured by overlying bowel. RIGHT KIDNEY: The right kidney measures 10.3 cm in length. There is no hydronephrosis. PERITONEAL AND RIGHT PLEURAL SPACE: No ascites or effusions. OTHER: No other findings. IMPRESSION: 1. Cholelithiasis without other associated findings to indicate an acute cholecystitis. 2. Limited evaluation of the pancreas and abdominal aorta due to overlying bowel. TECHNICAL DOCUMENTATION: JOB ID: [id number] 2010 [employer]- All Rights Reserved Reading location - IP/workstation name: [email or web address]
--- NOTE | 2019-11-29 11:08 | RADIOLOGY REPORT (SQ) ---
EXAM DESCRIPTION: UGI W/ DOUBLE CONTRAST IMAGES COMPLETED DATE/TIME: 11/29/2019 8:26 am REASON FOR STUDY: EPIGASTRIC PAIN (R10.13), FUNCTIONAL DYSPEPSIA (K30), GERD (K21.9), N/V (R1 R10.13 EPIGASTRIC PAIN K30 FUNCTIONAL DYSPEPSIA K21.9 GASTRO-ESOPHAGEAL REFLUX DISEASE WITHOUT ESOPHAGIT IS COMPARISON: None. TECHNIQUE: Under fluoroscopic guidance, patient ingested effervescent granules followed by thick and thin barium. Fluoroscopic spot images and routine radiographic images acquired and stored on PACS. 12 MM BARIUM TABLET GIVEN: Yes. No significant delay in passage. LIMITATIONS: None. FLUOROSCOPY TIME: FLUORO TIME: 1.6 minutes. 16 images saved to PACS. FINDINGS: NEUROMUSCULAR COORDINATION OF SWALLOW: Normal. No aspiration. ESOPHAGEAL MOTILITY: Normal peristalsis. No esophageal spasm. ESOPHAGEAL MUCOSA: Normal mucosa without masses or ulceration. GASTRO-ESOPHAGEAL JUNCTION: Small sliding hiatal hernia with mild gastroesophageal reflux. 12 mm bar ium tablet passed through the GE junction without delay. STOMACH: Normal without masses or ulcerations. GASTRIC OUTLET: No delay in emptying. Normal pylorus. DUODENAL BULB: Normal distention. No spasm or ulceration. DUODENUM: Mucosa normal. No extrinsic masses or malrotation. PROXIMAL SMALL BOWEL: Mucosa normal. No extrinsic masses or malrotation. NON-GI TRACT STRUCTURES: No significant finding. OTHER: No other significant finding. IMPRESSION: SMALL SLIDING HIATAL HERNIA WITH MILD GASTROESOPHAGEAL REFLUX. STOMACH AND DUODENUM ARE UNREMARKABLE. COMMENT: Quality ID [id number]: Final reports for procedures using fluoroscopy that document radiation exp osure indices, or exposure time and number of fluorographic images (if radiation exposure indices are not available) TECHNICAL DOCUMENTATION: JOB ID: [id number] 2010 [employer] All Rights Reserved Reading location - IP/workstation name: [email or web address] [id number]
== END ==
LOC: RAD 07:14
PROVIDERS: ATTEND Nurse Practitioner
DX: K30 Functional dyspepsia (principal); K80.20 Calculus of gallbladder without cholecystitis without obstruction; K21.9 Gastro-esophageal reflux disease without esophagitis; K44.9 Diaphragmatic hernia without obstruction or gangrene; R11.2 Nausea with vomiting, unspecified
CPT/HCPCS: 74246; 76705